=== PATIENT | female | born 1985 | race Caucasian/White ===

== ENCOUNTER 2022-07-24 09:48 | Emergency (ER) | payer MEDICAID ==
[~2022-07-24] VITALS: Ht 167.6 cm; Wt 64.9 kg
--- NOTE | 2022-07-24 09:50 | NUR ---
PATIENT ARRIVED WITH ABDOMINAL DISTENSION, HAS HISTORY OF INTERMITTENT FLUID BUILDUP IN ABDOMEN REQUIRING PARACENTESIS. PATIENT NOTED WITH YELLOWISH SCLERA IN BOTH EYES. A/O X 3, ABLE TO MAKE NEEDS KNOWN, TOLERATING WELL ON ROOM AIR.
--- NOTE | 2022-07-24 10:28 | NUR ---
IV INSERTED LT AC 20G BLD DRAWN AND SENT TO LAB
[2022-07-24 10:58] LABS: ALBUMIN 2.5 g/dL (3.4-5.0); BILIRUBIN,TOTAL 9.2 mg/dL (0.2-1.0); CALCIUM, SERUM 8.9 mg/dL (8.5-10.1); CREATININE 0.7 mg/dL (0.6-1.3); POTASSIUM 3.7 mmol/L (3.5-5.1); TOTAL PROTEIN, SERUM 6.6 g/dL (6.4-8.2)
[2022-07-24 11:21] LABS: BASOPHILS # (AUTO) 0.2 K/uL (0.0-0.2); EOSINOPHILS % (AUTO) 0.9 % (0.0-6.0); HEMATOCRIT 35 % (33-45); HEMOGLOBIN 11.2 g/dL (11.5-14.8); LYMPHOCYTES # (AUTO) 1.6 K/uL (0.8-4.8); LYMPHOCYTES % (AUTO) 22.2 % (20.0-44.0); MEAN CORPUSCULAR HGB CONC 32 g/dl (31.0-36.0); MEAN CORPUSCULAR VOLUME 96 fL (82-100); MONOCYTES # (AUTO) 0.4 K/uL (0.1-1.30); MONOCYTES % (AUTO) 5.5 % (2.0-12.0); NEUTROPHILS % (AUTO) 68.4 % (43.0-81.0); PLATELET COUNT (AUTO) 311 K/uL (150-450); RED BLOOD CELL COUNT(AUTO) 3.68 MIL/uL (4.0-5.2); WHITE BLOOD COUNT (AUTO) 7.3 K/uL (4.3-11.0)
[2022-07-24] MEDS ORDERED: ONDANSETRON HCL/PF 4 MG/2 ML VIAL ONE (11:48)
[2022-07-24] MEDS ORDERED: MORPHINE SULFATE INJ 4 MG/ML DISP.SYRIN ONE (11:48)
[2022-07-24] MEDS ORDERED: MORPHINE SULFATE INJ 2 MG/ML DISP.SYRIN IV ONE (12:00)
[2022-07-24] MEDS ORDERED: ONDANSETRON HCL/PF - ER 4 MG/2 ML VIAL IV ONE (12:00)
--- NOTE | 2022-07-24 13:18 | NUR ---
PARACENTESIS CONSENT FORM SIGNED BY PATIENT. RISKS AND BENEFITS OF PROCEDURE EXPLAINED AND PATIENT VERBALIZED UNDERSTANDING. PARACENTESIS PERFORMED AND ASCITES FLUID SAMPLES TAKE AND PLACED IN DROP-OFF BIN.
[2022-07-24] MEDS ORDERED: LIDOCAINE 2% 20 ML MDV ONE (14:04)
--- NOTE | 2022-07-24 14:26 | NUR ---
Patient discharged to home in stable condition. Written and verbal after care instructions given. Patient verbalizes understanding of instruction.IV removed. Catheter intact and site benign. Pressure and 4x4 applied to site. No bleeding noted.
[2022-07-24 14:28] VITALS: BP 102/81
== END 2022-07-24 14:30 | disposition home or self-care (01) ==
LOC: ER 09:51
DX: K70.31 Alcoholic cirrhosis of liver with ascites (principal); R10.84 Generalized abdominal pain; D64.9 Anemia, unspecified; Z88.1 Allergy status to other antibiotic agents; Z88.5 Allergy status to narcotic agent
CPT/HCPCS: 49083; 99285; 96374; 96375; 87070; 85025; 80048; 83690; 80076; 36415; 85730; 89051; J2270; J2405 ×2; J3490